=== PATIENT | male | born 1965 | race Caucasian/White ===

== ENCOUNTER → 2017-02-01 | Outpatient (CLI) | payer BC ==
[~2017-02-01] MED LIST: AMOXIL500 M1 PO; BP MED; DIABETES MED; LORTAB 5/500 TA1 TA1 PO
--- NOTE | ~2017-02-01 | MR165 ---
[facility] A Service of [facility] & [facility] RADIOLOGY TEXT RESULTS PATIENT: GRECIA EDMONDSON LOCATION: [facility] : 61 UNIT #: [id number] AGE: [address]: SAMARIA KERN PA-C SEX: M ORDER DR: [id number] [address] [address] [id number] O MR#: [id number] Acc #: [id number] NAME: GRECIA EDMONDSON : 1965 SEX: M STUDY DATE/TIME: 02/01/2017 11:19 UNIT: [facility] ROOM: STUDY DESCRIPTION: MR Shoulder Wo Contrast Rt Attending Physician: Samaria Kern Pa-C Referring Physician: Samaria Kern Pa-C Ordering Physician: Staff Doctor Not On Primary Care Physician: Cortes Hunter M.D. MRI CENTER REPORT This report is preliminary unless electronic signature is present. EXAM Right shoulder MRI without contrast 02/01/2017 HISTORY 51-year-old male with right shoulder pain and limited range of motion status post possible injury playing golf 11/12/2016. No prior right shoulder surgery COMPARISON Right shoulder x-rays 04/28/2013 and 11/14/2016 TECHNIQUE Routine unenhanced multiplanar, multisequence high field MR imaging of the right shoulder was performed. FINDINGS There is moderate supraspinatus and infraspinatus tendinopathy. There is a thin partial thickness interstitial tear involving the posterior insertional supraspinatus tendon. This involves less than 25% of the tendon thickness. Teres minor subscapularis tendons are intact. Long biceps tendon intact well positioned in the bicipital groove. There is a degenerative-type tear involving majority of the superior and posterior glenoid labrum. 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 There is moderate to high-grade chondromalacia of the central and inferior humeral head articular surface. Small early osteophyte formation along the humeral head-neck junction. Trace glenohumeral effusion with mild synovial proliferation. Mild degenerative change of the acromioclavicular joint. No significant subacromial spur. Mild inflammation of the subacromial/subdeltoid bursa. [facility] A Service of [facility] RADIOLOGY TEXT RESULTS PATIENT: GRECIA EDMONDSON LOCATION: [facility] : 61 UNIT #: [id number] AGE: [address]: SAMARIA KERN PA-C SEX: M ORDER DR: Remainder of the bone marrow signal is within expected limits. Visualized musculature is unremarkable. IMPRESSION 1. Moderate supraspinatus and infraspinatus tendinopathy. There is a thin partial thickness interstitial tear involving the posterior insertional supraspinatus tendon. This involves less than 25% of the tendon thickness. No full-thickness rotator cuff tear identified. 2. Degenerative tear involving majority of the superior and posterior glenoid labrum. 3. 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 Small marginal osteophytes at the humeral head-neck junction. 4. Trace glenohumeral effusion with associated synovial proliferation. 5. Mild acromioclavicular joint arthrosis. 6. Mild inflammation of the subacromial/subdeltoid bursa Dictated by... Lazaro Valdes M.D. THIS IS AN ELECTRONICALLY VERIFIED REPORT Lazaro Valdes M.D. at 02/05/2017 10:16 AM LATANYA/cris TD: 02/01/2017 20:44 JOB #: [id number] MRI CENTER REPORT Page 1 of 1
== END | disposition home or self-care (01) ==
LOC: SMRI 10:07
DX: M25.511 Pain in right shoulder (principal); S43.491A Other sprain of right shoulder joint, initial encounter; M75.81 Other shoulder lesions, right shoulder; M94.211 Chondromalacia, right shoulder; M25.711 Osteophyte, right shoulder; M19.011 Primary osteoarthritis, right shoulder; M75.51 Bursitis of right shoulder
CPT/HCPCS: 73221